=== PATIENT | female | born 1970 | race Caucasian/White ===

== ENCOUNTER 2016-12-29 12:21 | Emergency (ER) | payer BC, MEDICARE ==
[~2016-12-29 12:21] MED LIST: ACCUNEB INH; DENIES HOME MEDS; LANTUS SC; MOTRIN IB200 MG PO; NOVOLOG SC
[2017-04-25] MEDS ORDERED: INCRUSE ELLI62.5 MCG INH (23:22)
[2017-04-25] MEDS ORDERED: PULRESP.5 PO (23:24)
[2017-04-25] MEDS ORDERED: L40 PO (23:24)
[2017-04-25] MEDS ORDERED: LIPITOR20 PO (23:24)
[2017-04-25] MEDS ORDERED: LANTUSCART SC (23:24)
[2017-04-25] MEDS ORDERED: HUMALOG SC (23:25)
[2017-04-25] MEDS ORDERED: ALBUTEROL0.083 % INH (23:25)
[2017-04-25] MEDS ORDERED: FESO4 PO (23:26)
[2017-04-25] MEDS ORDERED: PRIN5 PO (23:26)
[2017-05-01] MEDS ORDERED: T PO (09:35)
[2017-05-01] MEDS ORDERED: PCET PO (09:37)
[2017-05-01] MEDS ORDERED: DSS PO (09:37)
[2017-05-01] MEDS ORDERED: BACTRIM DS1 TAB PO (09:38)
[2017-05-01] MEDS ORDERED: ZOFRAN4 PO (09:38)
== END 2016-12-29 13:39 | disposition home or self-care (01) ==
LOC: ER 12:21
DX: S90.121A Contusion of right lesser toe(s) without damage to nail, initial encounter (principal); E11.9 Type 2 diabetes mellitus without complications; Z88.6 Allergy status to analgesic agent; Z79.4 Long term (current) use of insulin; Z79.899 Other long term (current) drug therapy; X58.XXXA Exposure to other specified factors, initial encounter
CPT/HCPCS: 73660-RT; 82962; 99283

== ENCOUNTER 2016-12-31 13:51 | Inpatient (IN) | payer BC, MEDICARE ==
--- NOTE | ~2016-12-31 | CN ---
Consultation Report [facility] [id number] [place]. [address] NAME: NOA LYNN : 72 STATUS : ADM IN PAT#: [id number] AGE: 46 ADM/REG DATE : 12/31/16 MR#: [id number] REPORT SERV DATE: 01/10/17 DICTATED BY: FEDERICA HAMPTON DATE: 01/09/17 REPORT STATUS : Draft TRANSCRIBED BY: MODL DATE: 01/09/17 CONSULTATION DATE OF CONSULTATION: Dear Dr. Mendenhall: Thank you for requesting my opinion regarding evaluation and management of Ms. Noa Stevens's abnormal CT scan of the chest and question of immunologic lung disease. Ms. 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 The patient began having redness and swelling of her right 3rd toe. She presented to the emergency room on Tuesday12/29/2016 and was admitted for cellulitis of the right lower leg. She underwent surgery on 01/05/2017 with right 3rd toe tip amputation demonstrating a chronic ulcer with underlying destruction of the cortical bone consistent with osteomyelitis. Dr. Sourav Steven, was consulted on 01/04/2017. The patient was ultimately found to have Staph lugdunensis, Acinetobacter, and MSSA. The patient currently is on Unasyn IV antibiotic therapy with significant improvement in her cellulitis. The patient became extremely short of breath on two occasions during her hospitalization, but received IV diuretics with clinical improvement. The patient's initial CT scan on 01/06/2017 demonstrated diffuse interstitial infiltrate suggesting interstitial pulmonary edema with some possible degree of chronic interstitial lung disease, small bilateral pleural effusions right greater than left, some possible early loculation of the left pleural effusion in the left major fissure, subsegmental atelectasis in both upper lobes and segmental size atelectasis in the left lower lobe and multisegment atelectasis in the right lower lobe. The patient's repeat chest x-ray on 01/09/2017 demonstrates no acute cardiopulmonary disease with improved aeration of the left lower lung base and minimal residual disease. The patient's echocardiogram on 01/08/2017 demonstrated normal LV function with an EF of 55% to 60%, and no valvular disease. The patient currently has mild shortness of breath well localized to the chest, nonradiating with no significant alleviating or exacerbating factors. PAST MEDICAL HISTORY: 1. 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 She states that she may have seen a pulmonary physician likely Dr. Andre although I could not confirm this. 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 2. Back surgery. 3. Type 1 diabetes poorly controlled. Consultation Report [facility] [address] [place]. [address] NAME: NOA LYNN : 72 STATUS : ADM IN [facility]#: [id number] AGE: 46 ADM/REG DATE : 12/31/16 MR#: [id number] REPORT SERV DATE: 01/10/17 DICTATED BY: FEDERICA HAMPTON DATE: 01/09/17 REPORT STATUS : Draft TRANSCRIBED BY: LUIS DATE: 01/09/17 4. Peripheral neuropathy. 5. Retinopathy. 6. Legally blind. PAST SURGICAL HISTORY: 1. Cholecystectomy. 2. Back surgery. 3. Recent right 3rd toe amputation. SOCIAL HISTORY: The patient is . Lives independently. No alcohol, tobacco, or illicit drug abuse. FAMILY HISTORY: Noncontributory from a GI standpoint. ALLERGIES: ASPIRIN. HOME MEDICATIONS: Reviewed and located in the paper chart. PHYSICAL EXAMINATION: VITAL SIGNS: Afebrile T current of 98.2, pulse of 94, respiratory rate of 20, 3 L nasal cannula 94%, blood pressure 171/81. GENERAL: No acute distress. Chronically ill appearing. The patient is blind. She can only make out figures out of her right eye. HEENT: Normocephalic and atraumatic. Pupils are equal, round, and reactive to light and accommodation. Posterior oropharynx is clear, but crowded. NECK: No JVD. No LAD. Thick neck. CARDIOVASCULAR: Regular rate and rhythm. S1 and S2 present. LUNGS: Coarse breath sounds bilaterally. Crackles at the bases. ABDOMEN: Nontender. Nondistended. Soft. Positive bowel sounds. EXTREMITIES: No clubbing, cyanosis, or edema. SKIN: No new rashes, lesions, or ulcers. The patient is status post right toe amputation. NEUROLOGIC: 5/5 strength in upper and lower extremities. Cranial nerves II through XII intact. Gait not tested. DTRs not performed. LABORATORY DATA: White count of 5, hemoglobin of 8.4, platelet count of 317, procalcitonin was abnormal on 01/08/2017 and 01/09/2017 it was normal at 0.39. Negative troponins x2. Surgical cultures demonstrate Staph lugdunensis. IMAGIN. Chest CTA on 01/06/2017 demonstrates no evidence of pulmonary embolism. 2. Upper normal heart size with coronary artery calcifications. 3. Diffuse interstitial infiltrate suggesting interstitial pulmonary pattern or interstitial pneumonitis pattern, some degree of chronic underlying chronic interstitial disease cannot be excluded. There is some asymmetry although relatively Consultation Report [address] [place]. [address] NAME: NOA LYNN : 72 STATUS : ADM IN PAT#: [id number] AGE: 46 ADM/REG DATE : 12/31/16 MR#: [id number] REPORT SERV DATE: 01/10/17 DICTATED BY: FEDERICA HAMPTON DATE: 01/09/17 REPORT STATUS : Draft TRANSCRIBED BY: LUIS DATE: 01/09/17 diffuse hazy ground-glass opacities of the lung ward prior to chest CT on 09/11/2015. 4. Underlying segmental atelectasis and upper lobes segmental size atelectasis in the left lower lobe and multi-segment atelectasis in the right lower lobe. 5. Small bilateral pleural effusions right greater than left. This chest CT was personally reviewed by me. 6. Chest x-ray on 01/09/2017 demonstrates significant improvement with no acute cardiopulmonary disease, improved aeration of the left lung base and minimal residual airspace disease. ASSESSMENT AND PLAN: Ms. 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 The patient has had two bouts of worsening shortness of breath during her hospitalization, however, responded brilliantly to Lasix. At this point, her shortness of breath is significantly improved but it is likely multifactorial due to the followin. Likely diastolic dysfunction despite normal echocardiogram. 2. Responsive to diuretics likely demonstrating many of the changes on the current CT scan of the chest on 01/06/2017 are not from underlying interstitial lung disease but heart failure. Repeat chest x-ray on 01/09/2017 is extremely reassuring. 3. 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 The patient may have seen Dr. Vivian Andre as an outpatient although this history is unclear. RECOMMENDATIONS: A summary of my recommendations are as follows: 1. Check FORD, ANCA, RF, ESR, and CRP. 2. Obtain medical records from Dr. Andre's office if possible. 3. Bedside spirometry. 4. Lasix 40 mg IV t.i.d. 5. Obtain thoracic surgical biopsy results from 1998 at [facility]. 6. Dr. Alfonso will be assuming the service tomorrow. Further recommendations to follow. Thank you for allowing me to participate in Ms. Lynn's care. Plan has been discussed with Dr. Mendenhall in detail. Sincerely, MIGUEL/LUIS Federica Hampton M.D. / [id number] Consultation Report [address] [place]. [address] NAME: NOA LYNN : 72 STATUS : ADM IN PAT#: [id number] AGE: 46 ADM/REG DATE : 12/31/16 MR#: [id number] REPORT SERV DATE: 01/10/17 DICTATED BY: FEDERICA HAMPTON DATE: 01/09/17 REPORT STATUS : Draft TRANSCRIBED BY: LUIS DATE: 01/09/17 CC: Kyra Merritt M.D.
--- NOTE | ~2016-12-31 | PUL ---
[facility] [id number] [place]. [address] NAME: MILAN LOVE : 72 STATUS : DIS IN PAT#: [id number] AGE: 46 ADM/REG DATE : 12/31/16 MR#: [id number] REPORT SERV DATE: 01/17/17 DICTATED BY: KRISTOPHER GOINS DATE: 01/16/17 REPORT STATUS : Draft TRANSCRIBED BY: MODL DATE: 01/16/17 PULMONARY FUNCTION TEST PROCEDURE PERFORMED: Spirometry. The patient was very short of breath and performed the test poorly. There was poor reliability, poor effort, poor reproducibility. Within these limitations, FVC was 30% of predicted with an FEV1 of 0.84 L or 30%. IMPRESSION: Very suboptimal study suggestive of a severe mixed ventilatory defect. CB/LUIS Kristopher Goins M.D. / [id number] CC: Calderon Acosta M.D.
--- NOTE | ~2016-12-31 | CN ---
Consultation Report [facility] [address] [place]. [address] NAME: MILAN LOVE : 72 STATUS : ADM IN PAT#: [id number] AGE: 46 ADM/REG DATE : 12/31/16 MR#: [id number] REPORT SERV DATE: 01/04/17 DICTATED BY: BRYANT STEVEN DATE: 01/04/17 REPORT STATUS : Draft TRANSCRIBED BY: MODL DATE: 01/04/17 INFECTIOUS DISEASE CONSULTATION DATE OF CONSULTATION: 01/04/2017 REASON FOR CONSULTATION: Antibiotic recommendations. HISTORY OF PRESENT ILLNESS: This is a 46-year-old female with a long history of diabetes mellitus since the age of 19 with accompanying peripheral neuropathy and retinopathy. She says about two and a half weeks ago, her noticed some bleeding from her right third toe and she felt she might have injured it while running after her grandchild. She developed some progressive soreness in the toe and foot and was seen six days ago in walk-in clinic and referred to the emergency department here, where she had an x-ray of the foot which was negative. The patient states that she was given topical antibiotics to place on the toe. However over the next 48 hours, her condition worsened with fevers and chills and increasing pain, swelling, and redness and drainage from the toe, and some pain also up into the lower leg. For these reasons, she re-presented to the emergency department on 12/31/2016 and was found to have a white blood cell count of 14.3, procalcitonin of 6.29, and obvious infection of the toe. She developed a fever as high as 101.6 after admission and was also tachycardic on admission. Workup included repeat x-ray of the right foot, which showed no definite evidence of osteomyelitis. She also had a right lower extremity ultrasound as she was complaining of a fair amount of pain in the calf and this was negative for clot. The patient was placed on antibiotics with vancomycin and ceftriaxone. The ceftriaxone was changed to Zosyn. Her white blood cell count steadily normalized and she defervesced. The patient was evaluated by Podiatry. An MRI was obtained of the right foot on 01/02/2017, which showed abnormal signal in the distal phalanx of the third toe consistent with osteomyelitis along with increased fluid with slight widening of the DIP joint of the third toe consistent with infection in the joint. Recommendation was made for partial amputation of the toe and the patient apparently has still been unsure about this. Because of ongoing pain though in the right calf, an MRI was done of the right lower leg. The formal report is pending, but on my review of the study, I see no obvious abnormalities. The patient does feel better compared to admission. However, she still has as mentioned a fair amount of pain in the leg and episodic nausea and vomiting. PAST MEDICAL HISTORY: In addition to the above is notable for some back surgery. ALLERGIES: ASPIRIN. PRESENT MEDICATIONS: Include vancomycin and Zosyn along with Lipitor, Lovenox, insulin, Prinivil, Protonix. SOCIAL HISTORY: She lives with her . Nonsmoker. Nondrinker. FAMILY HISTORY: Notable for father with pulmonary fibrosis, mother with diabetes. Consultation Report [address] [place]. [address] NAME: MILAN LOVE : 72 STATUS : ADM IN [facility]#: [id number] AGE: 46 ADM/REG DATE : 12/31/16 MR#: [id number] REPORT SERV DATE: 01/04/17 DICTATED BY: BRYANT STEVEN DATE: 01/04/17 REPORT STATUS : Draft TRANSCRIBED BY: LUIS DATE: 01/04/17 REVIEW OF SYSTEMS: As outlined above. She is also constipated. Denies any chest pain or shortness of breath. PHYSICAL EXAMINATION: VITAL SIGNS: The patient weighs 83 kg. She is afebrile. Blood pressure 130/54, pulse 88, respiratory rate 14. GENERAL: She is alert, no distress. HEAD AND NECK: Shows clear oral cavity without thrush. LUNGS: Clear to auscultation anteriorly. CARDIAC: Regular rate and rhythm without murmur, gallop, or rub. ABDOMEN: Soft and nontender. EXTREMITIES: Show peripheral IV in her right upper extremity without phlebitis. The right foot shows edema, erythema, and a small amount of drainage involving the right third toe, particularly at the tip where there is a wound. There is trace edema of the foot itself rather. There is no erythema of the right lower leg, but she does seem tender to palpation in certain areas of the anterior and medial calf. No evidence of phlebitis. LABORATORY STUDIES: White blood cell count 6.4, hemoglobin 8.2, platelets 246. On admission, her liver function tests were normal. Albumin today is 2.1. Creatinine 0.87, it was 1.67 on 01/01/2017. Microbiology studies, admission blood cultures negative, urinalysis negative. Initial culture from the right third toe grew sparse MSSA and group A strep. Repeat culture from the third toe on 01/01/2017 has grown abundant MSSA along with Acinetobacter and coagulase-negative Staph. IMAGING STUDIES: As noted above. IMPRESSION: Sepsis on admission secondary to right third toe cellulitis, osteomyelitis, and septic arthritis, and associated mild cellulitis of the right lower extremity in a diabetic patient. She is improved. Her sepsis has resolved. The main pathogen appears to be oxacillin-sensitive Staph aureus. Her blood cultures have also grown group A strep and Acinetobacter. She does have this pain still in the right calf, which is out of proportion to any physical exam findings and of questionable etiology. With the negative ultrasound though for a clot and what appears to be a negative MRI, I think we have ruled out more concerning pathology. PLAN: 1. I agree with the Podiatry's recommendation for partial amputation of the right third toe and the patient is agreeable to this. 2. I will change antibiotics to Unasyn and anticipate changing to oral antibiotic therapy after her surgery is completed. /MODL Consultation Report [address] [place]. [address] NAME: MILAN LOVE : 72 STATUS : ADM IN [facility]#: [id number] AGE: 46 ADM/REG DATE : 12/31/16 MR#: [id number] REPORT SERV DATE: 01/04/17 DICTATED BY: BRYANT STEVEN DATE: 01/04/17 REPORT STATUS : Draft TRANSCRIBED BY: LUIS DATE: 01/04/17 Bryant Steven M.D. / [id number] CC: Kyra Owen
--- NOTE | ~2016-12-31 | DS ---
Discharge Summary [facility] [place]. [address] NAME: MILAN LOVE : 72 STATUS : ADM IN [facility]#: [id number] AGE: 46 ADM/REG DATE : 12/31/16 MR#: [id number] REPORT SERV DATE: 01/10/17 DICTATED BY: CLAIRE ALLRED DATE: 01/10/17 REPORT STATUS : Draft TRANSCRIBED BY: MODL DATE: 01/10/17 ADMISSION DATE: 12/31/2016 DISCHARGE DATE: 01/10/2017 FINAL HOSPITAL DIAGNOSES: 1. Cellulitis and infection of the right third toe, status post amputation. 2. Diabetes mellitus. 3. Hyperlipidemia. 4. Hypertension. 5. GI bleed. CONSULTATIONS: Podiatry; Dr. Steven Infectious Disease; GI; and pulmonary Dr. Killian and Dr. Salazar. PROCEDURES: 1. Amputation of the toe. 2. Upper endoscopy done on the showing friable gastric mucosa, contact oozing, no active bleeding. 3. PFTs. 4. CT of the abdomen and pelvis done on the showing no evidence of acute abnormality within the abdomen and pelvis, slightly increased retroperitoneal lymph node prominence, nonspecific, minimal bibasilar atelectasis, and large right hepatic lobe with no suspicious focal hepatic abnormalities, cholecystectomy, and distended urinary bladder. 5. CTA of the chest done on the showing no evidence of pulmonary embolism. Upper normal heart size. Mild coronary artery calcifications. Diffuse interstitial infiltrates suggesting interstitial pulmonary edema or interstitial pneumonitis pattern. Some degree of underlying chronic interstitial lung disease not excluded. There is asymmetry although relatively diffuse. Hazy ground-glass opacities in the lung noted on prior exam 09/11/2015. Correlation with medical history requested. Subsegmental atelectasis both upper lobe; segmental size atelectasis left lower lobe; and multisegment atelectasis right lower lobe. Small bilateral pleural effusions, right greater than left. 6. Echocardiogram done on the showing an LVEF of 55% to 60% with normal cardiac dimensions. No valvular disease. 7. Doppler of lower extremity done on the showing negative ultrasound evidence of DVT. No DVT was noted. 8. MRI of the lower extremity done on the and the showing cellulitis on the 3rd toe. Abnormal signal in the distal phalanx of the 3rd toe consistent with osteomyelitis. Increased fluid and widening of the DIP joint. Superficial edema of the lower extremity. No evidence for myositis or osteomyelitis. No abscess noted. CURRENT PHYSICAL FINDINGS AND HISTORY OF PRESENT ILLNESS: Please see initial dictated H and P by Dr. Cohn. The patient was initially admitted for cellulitis of the right lower extremity, rule out osteo. Discharge Summary [address] [address] NAME: MILAN LOVE : 72 STATUS : ADM IN [facility]#: [id number] AGE: 46 ADM/REG DATE : 12/31/16 MR#: [id number] REPORT SERV DATE: 01/10/17 DICTATED BY: CLAIRE ALLRED DATE: 01/10/17 REPORT STATUS : Draft TRANSCRIBED BY: LUIS DATE: 01/10/17 Vital signs at the time of admission, blood pressure was 153/71, T-max was 101.6 on the , otherwise, her most recent has been 99.7 on the . Initial procalcitonin was 6.29; 0.52 on the ; and 0.39 on the . Initial electrolytes were unremarkable. Initial glucose was 424. This was corrected. BNP on the was 111.4. Lactate on admission was 2.4. Initial white count was 14.3, this decreased. Initial hemoglobin was 10.7, she got as low as 7.7, prompting the upper endoscopy. Followup checks on the and were 8 and 8.4, respectively. Blood cultures done on the are negative at 4 days. Wound cultures grew out multiple organisms, reviewed by ID. HOSPITAL COURSE: The patient was initially admitted for the cellulitis and osteomyelitis. She was placed on adjusted home dose insulin coverage, a bronchodilator protocol, DVT protocol. Podiatry was consulted. She was started on IV fluids, sliding scale. Vancomycin and Rocephin, pharmacy dosed her vancomycin. She was also put on bronchodilator protocol. Dr. Duran initially saw her, discontinued the Rocephin, and started her on Zosyn. I held her Lasix and requested the MRI. Pharmacy continued to monitor her vancomycin levels. ID saw her and concurred with antibiotics. Pain medications were prescribed and her pain was well controlled. She did eventually require however a Hatfield catheter. Prior to her surgery, the MRIs were done to rule out any DVT or abscess which were negative. IV fluids were titrated down. When her anemia was noted, her B12, folate, and iron levels were done. ID discontinued her vancomycin and Zosyn and started Unasyn. I picked up her care on the 2nd, started her on an iron replacement. She consented to surgery and went for that without complication. Fecal occult blood stools were ordered, when her H and H were noted to drop, GI was consulted. She was started on a Protonix drip. Her Lovenox was discontinued. She was started on IV Lasix for her fluid retention and EKG and troponin and BNP were checked. She was then scoped without any active bleeding noted, and she continued on diuresis with IV Lasix. She then had a complaint of acute onset of shortness of breath. A CTA was done to rule out any PE. It was noted that she had the fluid overload. Therefore the echocardiogram was ordered. When she was cleared from a bleeding standpoint, her DVT prophylaxis was restarted. She was placed on incentive spirometry. Electrolytes were followed during her diuresis. When she had a second episode of acute shortness of breath, pulmonary was consulted. Repeat procalcitonin did not show any infection. Serial troponins were negative. The echo had already been done without any wall motion abnormality or heart failure. She responded to diuresis. It was elected to place her on bronchodilators and follow her clinically outpatient for her suspected interstitial lung disease. Podiatry followed throughout her hospitalization and had signed off. ID gave recommendations for home p.o. antibiotics. Her H and H had stabilized and she was felt stable to discharge. DISPOSITION: Discharged home. MEDICATIONS: Prescriptions were written for Augmentin 875 b.i.d., to complete the remainder of the 8-day course that ID had recommended. A prescription for DuoNeb inhaler t.i.d.; Pulmicort inhaler b.i.d.; and Brovana inhaler b.i.d. Brovana was 15 and Pulmicort was 0.5. She will continue her Lipitor 20; iron 300 b.i.d.; Lasix 40 one per day; Lantus 60 with NovoLog 15 with meals and Prinivil 5. We will write her prescription for Protonix for the next several weeks. Pain medications if she needs them. Followup will be made with her PCP for hospital follow up. Pulmonary per their recommendations and Podiatry per their recommendations. GI if needed. Discharge Summary [address] [place] [facility] [address] NAME: MILAN LOVE : 72 STATUS : ADM IN PAT#: [id number] AGE: 46 ADM/REG DATE : 12/31/16 MR#: [id number] REPORT SERV DATE: 01/10/17 DICTATED BY: CLAIRE ALLRED DATE: 01/10/17 REPORT STATUS : Draft TRANSCRIBED BY: LUIS DATE: 01/10/17 TLF/LUIS Claire Allred M.D. / [id number] CC: Kyra Merritt M.D.
--- NOTE | ~2016-12-31 | CN ---
Consultation Report [facility] [address] [place]. [address] NAME: MILAN LYNN : 72 STATUS : ADM IN PAT#: [id number] AGE: 46 ADM/REG DATE : 12/31/16 MR#: [id number] REPORT SERV DATE: 01/06/17 DICTATED BY: CORETTA SHETH DATE: 01/06/17 REPORT STATUS : Draft TRANSCRIBED BY: MODL DATE: 01/06/17 GI CONSULTATION DATE OF CONSULTATION: 01/06/2017 REASON FOR CONSULTATION: Evaluation and management of nausea, vomiting, and coffee-ground emesis. HISTORY OF PRESENT ILLNESS: Ms. Lynn is a pleasant 46-year-old female patient, who was admitted on the with the chief complaint of nausea, vomiting, as well as cellulitis of the right lower extremity and right 3rd toe abscess. She was diagnosed with type 1 diabetes at the age of 19. Since that time, she has had progressive problems with control of her diabetes. She states that she had nausea and vomiting prior to one month ago. She began to experience nausea and vomiting. She came to the emergency room for further evaluation. She felt that this could be potentially secondary to the abnormalities of her right foot. She states that in the outpatient setting, she was vomiting up coffee- ground material that was very foul smelling. No bright-red blood. She denies any dark stools. She has had an EGD in the very distant past, she states that at the age of 19, when she was being worked for gallbladder disease. She said it was a negative exam. She states her mother has a history of peptic ulcer disease, unsure of the cause. She had a CT scan done on admission, which was negative from a gastrointestinal standpoint. Her hemoglobin has progressively dropped since coming in. Admission hemoglobin 10.7, presently 7.7. She is going to get transfused with packed red blood cells and a Protonix drip has been started. I have discussed with her, we will plan on taking her to the endoscopy suite tomorrow for EGD. Risks, benefits, alternatives, and complications were detailed for her to include but not limited to risk of bleeding, perforation, infection or reaction to medications as well as cardiac and pulmonary side effects. It should be noted that the patient has while inpatient, undergone amputation of the right 3rd toe secondary to osteomyelitis. Presently, has a wrap around that. 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 SURGICAL HISTORY: Cholecystectomy, back surgery, and recent right 3rd toe amputation. SOCIAL HISTORY: . Lives independently. No alcohol, tobacco, or illicits. FAMILY HISTORY: Noncontributory from a GI standpoint. ALLERGIES: ASPIRIN. HOME MEDICATIONS: Lipitor, Lasix, Lantus, Humalog, Zestril, and Bactroban. Consultation Report [facility] [id number] [place]. [address] NAME: MILAN LYNN : 72 STATUS : ADM IN [facility]#: [id number] AGE: 46 ADM/REG DATE : 12/31/16 MR#: [id number] REPORT SERV DATE: 01/06/17 DICTATED BY: CORETTA SHETH DATE: 01/06/17 REPORT STATUS : Draft TRANSCRIBED BY: LUIS DATE: 01/06/17 REVIEW OF SYSTEMS: A 10-point review of systems is obtained with pertinent positives addressed in the history of present illness. PHYSICAL EXAMINATION: VITAL SIGNS: Temperature is 98.0, pulse of 100, respirations 16, and blood pressure 157/71. NEURO: Reveals an alert, female, resting in bed with no focal deficits. GENERAL: She is cooperative, in no acute distress. Awake, alert, and oriented x3. HEAD, EARS, EYES, NOSE, AND THROAT: Anicteric. Pupils are equal, round, and reactive to light and accommodation. Normocephalic and atraumatic. NECK: No JVD. No palpable nodes. LUNGS: Diminished bilaterally with normal respiratory effort exhibited. CARDIOVASCULAR SYSTEM: Tachycardic with a regular rate and rhythm. ABDOMEN: Soft and obese. Mildly tender to palpation in the epigastric region. No distention or guarding elicited on exam. EXTREMITIES: Right is with dressing. Left lower extremity without edema. PERTINENT LABORATORY DATA: Sodium 141, potassium 3.7, BUN is 17, creatinine 0.87. White count is 7.0, hemoglobin 7.7, hematocrit 22.6, platelet count 246. INR of 1.1. ASSESSMENT: 1. Nausea, vomiting, upper GI bleed with coffee-ground emesis. Differential diagnosis includes peptic ulcer disease, esophagitis, gastritis, duodenitis, arteriovenous malformation, and neoplasm. 2. Acute blood loss anemia. 3. Diabetes, uncontrolled. 4. Sepsis secondary to right 3rd toe cellulitis, osteomyelitis, and septic arthritis, status post amputation. PLAN: 1. Protonix drip. 2. Clear liquid diet and n.p.o. after midnight. 3. EGD in the morning by Dr. Cruz. Other recommendations to follow. LILIBETH/LUIS MARYJANE Cooley / [id number] CC: Consultation Report [address] [place]. [address] NAME: MILAN LYNN : 72 STATUS : ADM IN [facility]#: [id number] AGE: 46 ADM/REG DATE : 12/31/16 MR#: [id number] REPORT SERV DATE: 01/06/17 DICTATED BY: CORETTA SHETH DATE: 01/06/17 REPORT STATUS : Draft TRANSCRIBED BY: LUIS DATE: 01/06/17 Anthony Mendenhall M.D. Calderon Acosta M.D.
--- NOTE | ~2016-12-31 | EGD ---
EGD REPORT [facility] [address] [address] NAME: NOA LYNN : 72 STATUS : ADM IN PAT#: [id number] AGE: 46 ADM/REG DATE : 12/31/16 MR#: [id number] REPORT SERV DATE: 01/07/17 DICTATED BY: GIRMA MERAZ DATE: 01/07/17 REPORT STATUS : Draft TRANSCRIBED BY: [facility] DATE: 01/07/17 Endoscopy Center Patient Name: Noa Lynn Date of : 1970 Attending MD: GIRMA MERAZ MD Procedure Date No Time: 01/07/2017 Procedure: Upper GI endoscopy Indications: Coffee-ground emesis Referring MD: BELIA GOETZ Medicines: Monitored Anesthesia Care Complications: No immediate complications. Estimated blood loss: Minimal. Procedure: Pre-Anesthesia Assessment: - ASA Grade Assessment: III - A patient with severe systemic disease. After obtaining informed consent, the endoscope was passed under direct vision. Throughout the procedure, the patient's blood pressure, pulse, and oxygen saturations were monitored continuously. The GIF [id number] was introduced through the mouth, and advanced to the second part of duodenum. The upper GI endoscopy was accomplished without difficulty. The patient tolerated the procedure well. Findings: The examined esophagus was normal. Mildly friable mucosa with contact bleeding was found in the gastric fundus. The examined duodenum was normal. The cardia and gastric fundus were normal on retroflexion. Impression: - Friable gastric mucosa with contact oozing of blood. - Otherwise normal EGD with no suggestion of recent GI bleeding Recommendation: - Return patient to hospital [facility] for ongoing care. - Check hemoglobin q 12 hours until stable. - Clear liquid diet today. - Use metoclopramide (Reglan) 10 mg IV Q6H. Procedure Code(s): --- Professional --- 55703, Esophagogastroduodenoscopy, flexible, transoral; diagnostic, including collection of specimen(s) by brushing or washing, when performed (separate procedure) EGD REPORT [facility] [address] [place], [place] [address] [place]. [address] NAME: NOA LYNN : 72 STATUS : ADM IN [facility]#: [id number] AGE: 46 ADM/REG DATE : 12/31/16 MR#: [id number] REPORT SERV DATE: 01/07/17 DICTATED BY: GIRMA MERAZ DATE: 01/07/17 REPORT STATUS : Draft TRANSCRIBED BY: [employer] DATE: 01/07/17 Diagnosis Code(s): --- Professional --- K31.9, Disease of stomach and duodenum, unspecified K92.0, Hematemesis CPT copyright 2013 [employer]. All rights reserved. The codes documented in this report are preliminary and upon him coder review may be revised to meet current compliance requirements. Girma Meraz MD GIRMA MERAZ MD 01/07/2017 8:11 AM This report has been signed electronically. Number of Addenda: 0 Note Initiated On: 01/07/2017 7:01 AM Scope Withdrawal Time 0 hours 0 minutes 0 seconds [address] [place] [address]
--- NOTE | ~2016-12-31 | HP ---
History And Physical [address] [address] NAME: MILAN LOVE : 72 STATUS : ADM IN [facility]#: [id number] AGE: 46 ADM/REG DATE : 12/31/16 MR#: [id number] REPORT SERV DATE: 01/01/17 DICTATED BY: DELANO FINCH DATE: 12/31/16 REPORT STATUS : Draft TRANSCRIBED BY: MODL DATE: 12/31/16 DATE OF ADMISSION: 12/31/2016 EXAMINING PHYSICIAN: Delano Finch M.D. REASON FOR ADMISSION: Cellulitis right lower extremity and right third toe abscess, nausea, and vomiting. HISTORY: This is a 46-year-old white female, who has had diabetes since age 19. Her last hemoglobin A1c was 16. She is followed by Dr. Belia Acosta in [place]. She lives in [place] and grew up there. She claims her sugars are fairly well controlled to nurse practitioner, Carey, but with a hemoglobin A1c of 16, this is doubtful. She began having redness and swelling of her right third toe. She was in the emergency room on 12/29/2016, with attention to it from the emergency room. However, the redness increased and fever increased. She started having ascending infection and came back for evaluation and treatment. She did not get to go see Dr. Acosta over this. She is being admitted for cellulitis of the right lower extremity. 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 She has had no further hospitalization since that time. HOME MEDICATIONS: Include the following: Atorvastatin 20 mg p.o. daily, furosemide 40 mg p.o. daily, Lantus 60 units subcu at bedtime, Humalog 15 units a.c. t.i.d., lisinopril 5 mg p.o. daily, Bactroban ointment one twice a day. ALLERGIES: ASPIRIN. SOCIAL HISTORY: She is for 26 years. Lives with her in [place] near [facility] on [facility]. She does not work outside the home. She is disabled. They have a son who had a basilar artery aneurysm rupture while lifting weights when he was in the [employer] football team. They have a daughter and they are raising two grand children at home. She does not smoke cigarettes or take any alcohol. FAMILY HISTORY: Her father of an immunologic lung disease and was at our [facility] with pulmonary fibrosis. Her mother has diabetes and has had peripheral vascular disease with slow successive amputations of the lower extremities. REVIEW OF SYSTEMS: She has become legally blind, at one time was completely blind, but is having injections in her eye and also has had detached retina. She has diabetic retinopathy, but no nephropathy. She does have peripheral neuropathy. History And Physical [facility] [id number] [facility] [place]. [address] NAME: MILAN LOVE : 72 STATUS : ADM IN PAT#: [id number] AGE: 46 ADM/REG DATE : 12/31/16 MR#: [id number] REPORT SERV DATE: 01/01/17 DICTATED BY: DELANO FINCH DATE: 12/31/16 REPORT STATUS : Draft TRANSCRIBED BY: LUIS DATE: 12/31/16 She has had occasional chest pain, was going to be scheduled for some cardiac studies by Dr. Acosta. She has no chest pain today. No shortness of breath. She has nausea and vomiting mostly, but no unilateral weakness. No melena, hematemesis, fits, seizures, or convulsions. She does have nausea and vomiting as outlined above. She is able to see now and turns her head toward me as we are discussing her case. The remainder of the review of systems is negative. PHYSICAL EXAMINATION: GENERAL: White female, in no acute distress. VITAL SIGNS: Blood pressure 153/71 with a heart rate of 116, respiratory rate 17, afebrile, oxygen saturation 95%, temperature was 99.8. HEENT: EOMI. Sclerae clear. Conjunctivae pink. Eyes have slight dysconjugate gaze. NECK: No bruit, without any JVD. CHEST: Clear to A and P. HEART: Regular S1, S2 without murmur, gallop, or click. BREASTS: Grossly without mass. ABDOMEN: Soft, nontender. Bowel sounds positive. No HSM. EXTREMITIES: 2+ edema bilaterally in the ankles. She has marked tenderness in the anterior gloria on the right side. She has a third toe right foot that is swollen, red and purple in hue in appearance. Distal pulses are intact at the dorsalis pedis and posterior tibial. NEUROLOGIC: She is anesthetic in her feet from the ankles to the toes. She has adequate sensation to feel the pain and the cellulitis on the right side. Her manager food beverage is equal and symmetric. Her speech is cogent and goal directed. She has no numbness and tingling in her hands. She is warm to touch. LYMPHATICS: There is no adenopathy palpable. SKIN: With redness in the right lower extremity. LABORATORY DATA: Her INR is 1.1 and the PTT of 22.2. Her CT scan of the abdomen and pelvis was done because of nausea and vomiting in the emergency room and she was found to have no evidence of acute abnormality in the abdomen or pelvis with slightly increased retroperitoneal adenopathy and minimal basilar atelectasis. She has an enlarged right hepatic lobe and cholecystectomy signs. Right foot x-ray shows no foot fracture dislocation. She has calcaneal spurs. Cellulitis of the third toe without definitive osteomyelitis. Chest x-ray done PA and lateral shows no acute cardiopulmonary abnormality. Venous Dopplers ordered by LAY Patino, showing negative right deep veins for DVT. Lactate 2.7. CBC showed a hemoglobin of 10.7, hematocrit 31.4, platelets 265, and WBC 14,300. History And Physical [address] [address] NAME: MILAN LOVE : 72 STATUS : ADM IN [facility]#: [id number] AGE: 46 ADM/REG DATE : 12/31/16 MR#: [id number] REPORT SERV DATE: 01/01/17 DICTATED BY: DELANO FINCH DATE: 12/31/16 REPORT STATUS : Draft TRANSCRIBED BY: MODL DATE: 12/31/16 X-rays, right toe, done on 12/29/2016 showed no toe fractures. Mild osteoarthritis. No evidence for osteomyelitis. Glucose was 295 on admission. ASSESSMENT: 1. Cellulitis, right anterior gloria. 2. Right third toe hematoma versus abscess. 3. Diabetes type 1. Last hemoglobin A1c was 16. 4. Tinea of her feet. 5. Blindness five years' duration. 6. Anemia. 7. History of retinal detachment. 8. History of x2. 9. History of thoracic surgery with immunologic lung disease. 10.Nausea and vomiting likely secondary to the cellulitis. The patient admitted to the hospital. IV Rocephin and vancomycin initially. We will get Podiatry help and check urine culture as well to see if there is not a urinary tract infection hidden. This was not done prior to my seeing the patient. ELIOT/LUIS Delano Finch M.D. / [id number] CC: MD BELIA Schultz
[2016-12-31 14:19] LABS: BASOPHILS 0.1 %; BASOPHILS ABSOLUTE 0.01 10/3/uL (0.0-0.16); EOSINOPHILS 0.1 %; EOSINOPHILS ABSOLUTE 0.01 10/3/uL (0.0-0.53); HEMATOCRIT 31.4 % (36.0-48.0); HEMOGLOBIN 10.7 g/dL (12.0-16.0); IMMATURE GRANULOCYTES 0.3 %; IMMATURE GRANULOCYTES ABSOLUTE 0.04 10/3/uL (0.0-0.11); LYMPHOCYTES 2.7 %; LYMPHOCYTES ABSOLUTE 0.39 10/3/uL (0.67-4.30); MEAN CORPUS HGB CONC 34.1 g/dL (32.0-36.0); MEAN CORPUSCULAR VOLUME 85.1 fL (80-100); MEAN PLATELET VOLUME 9.5 fL (9.2-13.0); MONOCYTES 5.9 %; MONOCYTES ABSOLUTE 0.84 10/3/uL (0.21-1.20); NEUTROPHILS 90.9 %; NEUTROPHILS ABSOLUTE 12.96 10/3/uL (2.02-8.40); PLATELET COUNT 265 10/3/uL (150-400); RBC DISTRIBUTION WIDTH 12.5 % (12.0-16.0); RED CELL COUNT 3.69 10/6/uL (4.0-5.6)
[2016-12-31 14:20] LABS: ER CBC TAT 0 Hrs 07 Mins; WHITE BLOOD CELLS 14.3 10/3/uL (4.5-10.5)
[2016-12-31 14:21] LABS: MANUAL DIFF NO %
[2016-12-31 14:36] LABS: LACTATE 2.1 MMOL/L (0.3-2.4)
[2016-12-31 14:38] LABS: A/G RATIO 0.8 (0.7-1.9); ALBUMIN 2.9 G/DL (3.5-5.0); ALKALINE PHOSPHATASE 85 U/L (45-117); BUN (BLOOD UREA NITROGEN) 15 MG/DL (6-23); CALCIUM, SERUM 8.9 MG/DL (8.5-10.4); CHLORIDE, SERUM 101 MMOL/L (96-112); CO2 (CARBON DIOXIDE) 28 MMOL/L (24-34); CREATININE 0.81 MG/DL (0.55-1.02); GFR AFRICAN AMERICAN 102 ML/MIN (>=60); GFR NON AFRICAN AMERICAN 88 ML/MIN (>=60); GLOBULIN 3.8 G/DL (2.5-4.1); POTASSIUM, SERUM 3.9 MMOL/L (3.5-5.3); SGOT(AST) 28 U/L (5-40); SGPT(ALT) 22 U/L (5-65); SODIUM, SERUM 138 MMOL/L (135-148); TOTAL BILIRUBIN 0.6 MG/DL (0-1.2); TOTAL PROTEIN 6.7 G/DL (6.0-8.5)
[2016-12-31 14:46] LABS: GLUCOSE, SERUM 424 MG/DL (60-99)
[2016-12-31] MEDS ORDERED: ZESTRIL5 MG PO (14:51)
[2016-12-31] MEDS ORDERED: L40 PO (14:52)
[2016-12-31] MEDS ORDERED: LIPITOR20 PO (14:52)
[2016-12-31] MEDS ORDERED: BACTROINT TOP (14:57)
[2016-12-31] MEDS ORDERED: HUMALOG SC (14:58)
[2016-12-31] MEDS ORDERED: LANTUS SC (15:00)
[2016-12-31 15:20] LABS: PROCALCITONIN 6.29 ng/mL (<0.5)
[2016-12-31 17:29] LABS: INTERNATIONAL NORMAL RATI 1.1 UNITS (-); PROTIME (NOT ORD) 13.6 SEC (12.0-14.5)
[2016-12-31 17:34] LABS: PARTIAL THROMBO TIME 22.9 SEC (22.5-37.2)
[2016-12-31 18:30] LABS: WBC (NOT ORDERED) (RFLEX) 0 (0-5)
[2016-12-31 18:43] LABS: ASCORBIC ACID (UR NOT ORDER) NEG (NEG); BILIRUBIN, URINE NEGATIVE (NEG); ER URINALYSIS TAT 0 Hrs 19 Mins; KETONE, URINE 20 MG/DL (NEG); LEUKOCYTE ESTERASE(NOT OR NEG (NEG); NITRITE (URINE) NEG (NEG)
[2017-01-01 07:01] LABS: HEMOGLOBIN 9.3 g/dL (12.0-16.0); MEAN CORPUS HGB CONC 33.9 g/dL (32.0-36.0); MEAN CORPUSCULAR HEMOGLOB 29.4 pg (26.0-34.0); MEAN CORPUSCULAR VOLUME 86.7 fL (80-100); MEAN PLATELET VOLUME 9.7 fL (9.2-13.0); PLATELET COUNT 235 10/3/uL (150-400); RBC DISTRIBUTION WIDTH 12.8 % (12.0-16.0); RED CELL COUNT 3.16 10/6/uL (4.0-5.6); WHITE BLOOD CELLS 12.5 10/3/uL (4.5-10.5)
[2017-01-01 07:09] LABS: HEMATOCRIT 27.4 % (36.0-48.0); MANUAL DIFF YES %
[2017-01-01 07:34] LABS: BAND NEUTROPHILS 6 %; LYMPHOCYTES 10 %; LYMPHOCYTES ABSOLUTE (CALC) 1.25 10/3/uL (0.67-4.30); MONOCYTES 3 %; MONOCYTES ABSOLUTE (CALC) 0.38 10/3/uL (0.21-1.20); NEUTROPHILS ABSOLUTE (CALC) 10.88 10/3/uL (2.02-8.40); PLATELET ESTIMATE ADQ (ADEQUATE); RBC MORPHOLOGY NORM (NORMAL); SEGMENTED NEUTROPHIL (0) 81 %; TOTAL NUCLEATED CELLS 100
[2017-01-01 08:34] LABS: CHLORIDE, SERUM 107 MMOL/L (96-112); SODIUM, SERUM 140 MMOL/L (135-148)
[2017-01-01 08:37] LABS: BUN (BLOOD UREA NITROGEN) 24 MG/DL (6-23); CALCIUM, SERUM 7.8 MG/DL (8.5-10.4); CO2 (CARBON DIOXIDE) 22 MMOL/L (24-34); CREATININE 1.67 MG/DL (0.55-1.02); GFR AFRICAN AMERICAN 42 ML/MIN (>=60); GFR NON AFRICAN AMERICAN 37 ML/MIN (>=60); GLUCOSE, SERUM 216 MG/DL (60-99)
[2017-01-01 08:38] LABS: POTASSIUM, SERUM 4.4 MMOL/L (3.5-5.3)
[2017-01-02 09:20] LABS: HEMATOCRIT 27.8 % (36.0-48.0); HEMOGLOBIN 9.4 g/dL (12.0-16.0); MANUAL DIFF YES %; MEAN CORPUS HGB CONC 33.8 g/dL (32.0-36.0); MEAN CORPUSCULAR HEMOGLOB 28.9 pg (26.0-34.0); MEAN CORPUSCULAR VOLUME 85.5 fL (80-100); MEAN PLATELET VOLUME 9.8 fL (9.2-13.0); PLATELET COUNT 210 10/3/uL (150-400); RBC DISTRIBUTION WIDTH 12.6 % (12.0-16.0); RED CELL COUNT 3.25 10/6/uL (4.0-5.6); WHITE BLOOD CELLS 10.6 10/3/uL (4.5-10.5)
[2017-01-02 09:46] LABS: BAND NEUTROPHILS 2 %; LYMPHOCYTES 14 %; LYMPHOCYTES ABSOLUTE (CALC) 1.48 10/3/uL (0.67-4.30); MONOCYTES 8 %; MONOCYTES ABSOLUTE (CALC) 0.85 10/3/uL (0.21-1.20); NEUTROPHILS ABSOLUTE (CALC) 8.27 10/3/uL (2.02-8.40); PLATELET ESTIMATE ADQ (ADEQUATE); RBC MORPHOLOGY NORM (NORMAL); SEGMENTED NEUTROPHIL (0) 76 %; TOTAL NUCLEATED CELLS 100
[2017-01-02 09:47] LABS: BUN (BLOOD UREA NITROGEN) 25 MG/DL (6-23); CALCIUM, SERUM 7.6 MG/DL (8.5-10.4); CHLORIDE, SERUM 107 MMOL/L (96-112); CO2 (CARBON DIOXIDE) 20 MMOL/L (24-34); CREATININE 1.39 MG/DL (0.55-1.02); GFR AFRICAN AMERICAN 53 ML/MIN (>=60); GFR NON AFRICAN AMERICAN 46 ML/MIN (>=60); GLUCOSE, SERUM 211 MG/DL (60-99); PHOSPHORUS, SERUM 3.8 MG/DL (2.5-4.5); POTASSIUM, SERUM 4.9 MMOL/L (3.5-5.3); SODIUM, SERUM 140 MMOL/L (135-148)
[2017-01-02 09:48] LABS: ALBUMIN 2.3 G/DL (3.5-5.0)
[2017-01-03 11:09] LABS: BASOPHILS 0.1 %; BASOPHILS ABSOLUTE 0.01 10/3/uL (0.0-0.16); EOSINOPHILS 0.5 %; EOSINOPHILS ABSOLUTE 0.04 10/3/uL (0.0-0.53); HEMATOCRIT 25.6 % (36.0-48.0); HEMOGLOBIN 8.6 g/dL (12.0-16.0); IMMATURE GRANULOCYTES 0.5 %; IMMATURE GRANULOCYTES ABSOLUTE 0.04 10/3/uL (0.0-0.11); LYMPHOCYTES 12.1 %; LYMPHOCYTES ABSOLUTE 0.89 10/3/uL (0.67-4.30); MANUAL DIFF NO %; MEAN CORPUS HGB CONC 33.6 g/dL (32.0-36.0); MEAN CORPUSCULAR HEMOGLOB 29.3 pg (26.0-34.0); MEAN CORPUSCULAR VOLUME 87.1 fL (80-100); MEAN PLATELET VOLUME 8.9 fL (9.2-13.0); MONOCYTES 5.8 %; MONOCYTES ABSOLUTE 0.43 10/3/uL (0.21-1.20); NEUTROPHILS ABSOLUTE 5.97 10/3/uL (2.02-8.40); PLATELET COUNT 235 10/3/uL (150-400); RBC DISTRIBUTION WIDTH 12.7 % (12.0-16.0); RED CELL COUNT 2.94 10/6/uL (4.0-5.6); WHITE BLOOD CELLS 7.4 10/3/uL (4.5-10.5)
[2017-01-03 11:21] LABS: ALBUMIN 2.2 G/DL (3.5-5.0); BUN (BLOOD UREA NITROGEN) 22 MG/DL (6-23); CALCIUM, SERUM 7.9 MG/DL (8.5-10.4); CHLORIDE, SERUM 107 MMOL/L (96-112); CO2 (CARBON DIOXIDE) 24 MMOL/L (24-34); CREATININE 1.01 MG/DL (0.55-1.02); GFR AFRICAN AMERICAN 78 ML/MIN (>=60); GFR NON AFRICAN AMERICAN 67 ML/MIN (>=60); GLUCOSE, SERUM 239 MG/DL (60-99); SODIUM, SERUM 140 MMOL/L (135-148)
[2017-01-03 11:22] LABS: PHOSPHORUS, SERUM 2.3 MG/DL (2.5-4.5); POTASSIUM, SERUM 3.9 MMOL/L (3.5-5.3)
[2017-01-03 14:17] LABS: RETICULOCYTE COUNT 3.4 % (0.5-2.5); RETICULOCYTE COUNT ABSOLUTE 98.8 10/3/uL (20.2-119.8)
[2017-01-03 15:04] LABS: FERRITIN 191 NG/ML (8-252); IRON BINDING CAPACITY 287 MCG/DL (225-410); IRON, SERUM 34 MCG/DL (35-150)
[2017-01-03 15:05] LABS: FOLATE 28.5 NG/ML (>5.2)
[2017-01-04 06:34] LABS: BASOPHILS 0.2 %; BASOPHILS ABSOLUTE 0.01 10/3/uL (0.0-0.16); EOSINOPHILS 1.7 %; EOSINOPHILS ABSOLUTE 0.11 10/3/uL (0.0-0.53); HEMATOCRIT 24.7 % (36.0-48.0); HEMOGLOBIN 8.2 g/dL (12.0-16.0); IMMATURE GRANULOCYTES 0.6 %; IMMATURE GRANULOCYTES ABSOLUTE 0.04 10/3/uL (0.0-0.11); LYMPHOCYTES 16.9 %; LYMPHOCYTES ABSOLUTE 1.09 10/3/uL (0.67-4.30); MEAN CORPUS HGB CONC 33.2 g/dL (32.0-36.0); MEAN CORPUSCULAR HEMOGLOB 28.9 pg (26.0-34.0); MEAN PLATELET VOLUME 9.3 fL (9.2-13.0); MONOCYTES 8.2 %; MONOCYTES ABSOLUTE 0.53 10/3/uL (0.21-1.20); NEUTROPHILS 72.4 %; NEUTROPHILS ABSOLUTE 4.66 10/3/uL (2.02-8.40); PLATELET COUNT 246 10/3/uL (150-400); RBC DISTRIBUTION WIDTH 12.5 % (12.0-16.0); RED CELL COUNT 2.84 10/6/uL (4.0-5.6); WHITE BLOOD CELLS 6.4 10/3/uL (4.5-10.5)
[2017-01-04 06:36] LABS: MANUAL DIFF NO %
[2017-01-04 06:45] LABS: ALBUMIN 2.1 G/DL (3.5-5.0); CHLORIDE, SERUM 107 MMOL/L (96-112); CO2 (CARBON DIOXIDE) 26 MMOL/L (24-34); CREATININE 0.87 MG/DL (0.55-1.02); GFR AFRICAN AMERICAN 93 ML/MIN (>=60); GFR NON AFRICAN AMERICAN 80 ML/MIN (>=60); GLUCOSE, SERUM 212 MG/DL (60-99); PHOSPHORUS, SERUM 2.1 MG/DL (2.5-4.5); POTASSIUM, SERUM 3.7 MMOL/L (3.5-5.3); SODIUM, SERUM 141 MMOL/L (135-148)
[2017-01-04 06:46] LABS: BUN (BLOOD UREA NITROGEN) 17 MG/DL (6-23)
[2017-01-06 06:25] LABS: BASOPHILS 0.1 %; BASOPHILS ABSOLUTE 0.01 10/3/uL (0.0-0.16); EOSINOPHILS 2.1 %; EOSINOPHILS ABSOLUTE 0.15 10/3/uL (0.0-0.53); HEMATOCRIT 22.6 % (36.0-48.0); HEMOGLOBIN 7.7 g/dL (12.0-16.0); IMMATURE GRANULOCYTES 1.1 %; IMMATURE GRANULOCYTES ABSOLUTE 0.08 10/3/uL (0.0-0.11); LYMPHOCYTES 14.7 %; LYMPHOCYTES ABSOLUTE 1.03 10/3/uL (0.67-4.30); MANUAL DIFF NO %; MEAN CORPUS HGB CONC 34.1 g/dL (32.0-36.0); MEAN CORPUSCULAR HEMOGLOB 28.8 pg (26.0-34.0); MEAN CORPUSCULAR VOLUME 84.6 fL (80-100); MEAN PLATELET VOLUME 9.1 fL (9.2-13.0); MONOCYTES 8.8 %; MONOCYTES ABSOLUTE 0.62 10/3/uL (0.21-1.20); NEUTROPHILS 73.2 %; NEUTROPHILS ABSOLUTE 5.14 10/3/uL (2.02-8.40); PLATELET COUNT 246 10/3/uL (150-400); RBC DISTRIBUTION WIDTH 12.6 % (12.0-16.0); RED CELL COUNT 2.67 10/6/uL (4.0-5.6)
[2017-01-06 22:04] LABS: CALCIUM, SERUM 8.7 MG/DL (8.5-10.4); CHLORIDE, SERUM 109 MMOL/L (96-112); CO2 (CARBON DIOXIDE) 24 MMOL/L (24-34); CREATININE 0.64 MG/DL (0.55-1.02); GFR AFRICAN AMERICAN 125 ML/MIN (>=60); GFR NON AFRICAN AMERICAN 108 ML/MIN (>=60); POTASSIUM, SERUM 3.7 MMOL/L (3.5-5.3); SODIUM, SERUM 143 MMOL/L (135-148)
[2017-01-06 22:06] LABS: BUN (BLOOD UREA NITROGEN) 7 MG/DL (6-23); GLUCOSE, SERUM 125 MG/DL (60-99)
[2017-01-07 06:08] LABS: BASOPHILS 0.2 %; BASOPHILS ABSOLUTE 0.01 10/3/uL (0.0-0.16); EOSINOPHILS 2.2 %; EOSINOPHILS ABSOLUTE 0.14 10/3/uL (0.0-0.53); HEMATOCRIT 23.5 % (36.0-48.0); IMMATURE GRANULOCYTES 0.9 %; IMMATURE GRANULOCYTES ABSOLUTE 0.06 10/3/uL (0.0-0.11); LYMPHOCYTES 17.9 %; LYMPHOCYTES ABSOLUTE 1.16 10/3/uL (0.67-4.30); MEAN CORPUSCULAR HEMOGLOB 29.4 pg (26.0-34.0); MEAN CORPUSCULAR VOLUME 86.4 fL (80-100); MEAN PLATELET VOLUME 8.9 fL (9.2-13.0); MONOCYTES ABSOLUTE 0.65 10/3/uL (0.21-1.20); NEUTROPHILS 68.8 %; NEUTROPHILS ABSOLUTE 4.47 10/3/uL (2.02-8.40); PLATELET COUNT 285 10/3/uL (150-400); RBC DISTRIBUTION WIDTH 12.7 % (12.0-16.0); RED CELL COUNT 2.72 10/6/uL (4.0-5.6); WHITE BLOOD CELLS 6.5 10/3/uL (4.5-10.5)
[2017-01-07 06:11] LABS: MANUAL DIFF NO %
[2017-01-07 06:16] LABS: INTERNATIONAL NORMAL RATI 1.1 UNITS (-); PARTIAL THROMBO TIME 28.8 SEC (22.5-37.2)
[2017-01-07 06:28] LABS: BUN (BLOOD UREA NITROGEN) 6 MG/DL (6-23); CALCIUM, SERUM 8.3 MG/DL (8.5-10.4); CHLORIDE, SERUM 108 MMOL/L (96-112); CREATININE 0.54 MG/DL (0.55-1.02); GFR AFRICAN AMERICAN 132 ML/MIN (>=60); GFR NON AFRICAN AMERICAN 114 ML/MIN (>=60); POTASSIUM, SERUM 3.3 MMOL/L (3.5-5.3); SODIUM, SERUM 146 MMOL/L (135-148)
[2017-01-07 06:32] LABS: CO2 (CARBON DIOXIDE) 31 MMOL/L (24-34); GLUCOSE, SERUM 59 MG/DL (60-99)
[2017-01-08 05:57] LABS: BUN (BLOOD UREA NITROGEN) 5 MG/DL (6-23); CALCIUM, SERUM 8.4 MG/DL (8.5-10.4); CHLORIDE, SERUM 107 MMOL/L (96-112); CO2 (CARBON DIOXIDE) 29 MMOL/L (24-34); CREATININE 0.65 MG/DL (0.55-1.02); GFR AFRICAN AMERICAN 124 ML/MIN (>=60); GFR NON AFRICAN AMERICAN 107 ML/MIN (>=60); POTASSIUM, SERUM 3.5 MMOL/L (3.5-5.3); SODIUM, SERUM 143 MMOL/L (135-148)
[2017-01-08 05:58] LABS: GLUCOSE, SERUM 187 MG/DL (60-99)
[2017-01-08 06:15] LABS: BASOPHILS 0.2 %; BASOPHILS ABSOLUTE 0.01 10/3/uL (0.0-0.16); EOSINOPHILS 2.7 %; EOSINOPHILS ABSOLUTE 0.16 10/3/uL (0.0-0.53); HEMATOCRIT 25.6 % (36.0-48.0); HEMOGLOBIN 8.4 g/dL (12.0-16.0); IMMATURE GRANULOCYTES 0.9 %; IMMATURE GRANULOCYTES ABSOLUTE 0.05 10/3/uL (0.0-0.11); LYMPHOCYTES 19.8 %; LYMPHOCYTES ABSOLUTE 1.16 10/3/uL (0.67-4.30); MEAN CORPUS HGB CONC 32.8 g/dL (32.0-36.0); MEAN CORPUSCULAR VOLUME 88.3 fL (80-100); MEAN PLATELET VOLUME 9.5 fL (9.2-13.0); MONOCYTES 7.7 %; MONOCYTES ABSOLUTE 0.45 10/3/uL (0.21-1.20); NEUTROPHILS 68.7 %; NEUTROPHILS ABSOLUTE 4.04 10/3/uL (2.02-8.40); PLATELET COUNT 317 10/3/uL (150-400); RBC DISTRIBUTION WIDTH 12.5 % (12.0-16.0); WHITE BLOOD CELLS 5.9 10/3/uL (4.5-10.5)
[2017-01-08 06:20] LABS: MANUAL DIFF NO %
[2017-01-08 16:37] LABS: TROPONIN I <0.02 NG/ML (<0.05)
[2017-01-08 17:10] LABS: PROCALCITONIN 0.52 ng/mL (<0.5)
[2017-01-09 19:41] LABS: C-REACTIVE PROTEIN 17.2 MG/L (<8.0)
[2017-01-09 19:42] LABS: RHEUMATOID FACTOR QUANT < 10 IU/ML (0-15)
[2017-01-10 08:08] LABS: ANA TITER <1:40 TITER
[2017-01-10] MEDS ORDERED: AUG875 PO (16:42)
[2017-01-10] MEDS ORDERED: BROVANA15 MCG INH (16:42)
[2017-01-10] MEDS ORDERED: DUONEB INH (16:43)
[2017-01-10] MEDS ORDERED: PULRESP.5 INH (16:43)
[2017-01-10] MEDS ORDERED: PROTONIX PO (16:44)
[2017-01-10] MEDS ORDERED: NORCO1 TA1 PO (16:44)
[2017-01-10] MEDS ORDERED: FESO4 PO (16:45)
[2017-01-12 23:31] LABS: ANCA <1:20 (()); MYELOPEROXIDASE ANTIBODY <0.2 AI (<1.0); PROTEINASE 3 ANTIBODY <0.2 AI (<1.0)
[2017-04-25] MEDS ORDERED: INCRUSE ELLI62.5 MCG INH (23:22)
[2017-04-25] MEDS ORDERED: PULRESP.5 PO (23:24)
[2017-04-25] MEDS ORDERED: LANTUSCART SC (23:24)
[2017-04-25] MEDS ORDERED: L40 PO (23:24)
[2017-04-25] MEDS ORDERED: LIPITOR20 PO (23:24)
[2017-04-25] MEDS ORDERED: ALBUTEROL0.083 % INH (23:25)
[2017-04-25] MEDS ORDERED: HUMALOG SC (23:25)
[2017-04-25] MEDS ORDERED: PRIN5 PO (23:26)
[2017-04-25] MEDS ORDERED: FESO4 PO (23:26)
[2017-05-01] MEDS ORDERED: T PO (09:35)
[2017-05-01] MEDS ORDERED: DSS PO (09:37)
[2017-05-01] MEDS ORDERED: PCET PO (09:37)
[2017-05-01] MEDS ORDERED: BACTRIM DS1 TAB PO (09:38)
[2017-05-01] MEDS ORDERED: ZOFRAN4 PO (09:38)
== END 2017-01-10 17:37 | disposition home or self-care (01) | DRG 853 ==
LOC: ER 13:51 → 4SO 19:01
PROVIDERS: Internal Medicine; Nurse Practitioner; Nurse Practitioner Family; Podiatrist
PROC: 0HBRXZZ Excision of Toe Nail, External Approach (ICD-10-PCS; 2017-01-01)
PROC: 0Y6T0Z3 Detachment at Right 3rd Toe, Low, Open Approach (ICD-10-PCS; principal; 2017-01-05 11:45)
PROC: 0DJ08ZZ Inspection of Upper Intestinal Tract, Via Natural or Artificial Opening Endoscopic (ICD-10-PCS; 2017-01-07)
DX: A41.1 Sepsis due to other specified staphylococcus (principal); K22.6 Gastro-esophageal laceration-hemorrhage syndrome; N17.9 Acute kidney failure, unspecified; J96.10 Chronic respiratory failure, unspecified whether with hypoxia or hypercapnia; M00.871 Arthritis due to other bacteria, right ankle and foot; E10.42 Type 1 diabetes mellitus with diabetic polyneuropathy; D62 Acute posthemorrhagic anemia; L03.115 Cellulitis of right lower limb; L02.611 Cutaneous abscess of right foot; M86.8X7 Other osteomyelitis, ankle and foot; E10.628 Type 1 diabetes mellitus with other skin complications; E10.65 Type 1 diabetes mellitus with hyperglycemia; E10.69 Type 1 diabetes mellitus with other specified complication; L03.031 Cellulitis of right toe; I10 Essential (primary) hypertension; B35.3 Tinea pedis; H54.0 Blindness, both eyes; E10.319 Type 1 diabetes mellitus with unspecified diabetic retinopathy without macular edema; Z79.4 Long term (current) use of insulin; Z79.899 Other long term (current) drug therapy; Z88.6 Allergy status to analgesic agent; K59.00 Constipation, unspecified; B95.0 Streptococcus, group A, as the cause of diseases classified elsewhere; K31.89 Other diseases of stomach and duodenum; J98.4 Other disorders of lung
CPT/HCPCS: 36415; 71010; 71020; 71275; 73630-RT; 73660-RT; 73718-RT; 73721-RT; 74176; 80048; 80053; 80069; 80202; 81001; 82565; 82607; 82728; 82746; 82962; 83516; 83516-59; 83540; 83550; 83605; 83615; 83690; 83735; 83880; 84100; 84145; 84484; 85025; 85045; 85610; 85652; 85730; 86039; 86140; 86255; 86431; 86850; 86900; 86901; 86920; 87015; 87040; 87070; 87075; 87077; 87102; 87116; 87186; 87205; 88305; 93005; 93971; 94010; 94640; 96374; 96375; 99283; 99285; A9270-GY; C8929; C9113; J0295; J0360; J1170; J2250; J2405; J2543; J2550; J2765; J3010; J3370; J3475; J3480; Q9957; Q9967